=== PATIENT | female | born 1955 | race Two or more races ===

== ENCOUNTER 2018-04-13 12:17 | Emergency (ER) | payer SELFPAY | END 2018-04-13 13:08 | disposition left against medical advice (07) | LOC: ER 12:17 | DX: M54.2 Cervicalgia (principal); M54.9 Dorsalgia, unspecified; Z53.21 Procedure and treatment not carried out due to patient leaving prior to being seen by health care provider ==

== ENCOUNTER 2021-11-26 12:26 | Emergency (ER) | payer OTHER ==
[~2021-11-26] VITALS: Ht 160 cm; Wt 68.0 kg
[2021-11-26 13:24] VITALS: BP 143/85
[2021-11-26] MEDS ORDERED: ACETAMINOPHEN 500 MG TAB PO ONE (14:00)
[2021-11-26] MEDS ORDERED: CEPH-510 PO (14:42)
[2021-11-26] MEDS ORDERED: IBUP800T27 PO (14:42)
== END 2021-11-26 14:51 | disposition home or self-care (01) ==
LOC: EDBD 12:26 → ER 12:34
DX: S16.1XXA Strain of muscle, fascia and tendon at neck level, initial encounter (principal); S80.10XA Contusion of unspecified lower leg, initial encounter; S40.812A Abrasion of left upper arm, initial encounter; V43.52XA Car driver injured in collision with other type car in traffic accident, initial encounter; Y93.89 Activity, other specified; Y92.410 Unspecified street and highway as the place of occurrence of the external cause; Y99.8 Other external cause status
CPT/HCPCS: 72040; 73090